=== PATIENT | female | born 1935 | race Caucasian/White ===

== ENCOUNTER → 2019-06-17 | Outpatient (CLI) | payer MEDICARE ==
[2014-10-27 23:20] VITALS: BP 147/56
[~2019-06-17] MED LIST: AMLO10TA4 PO; ASPI-630 PO; CHOL500016 PO; CLON0.1T PO; FERR325T14 PO; FURO40TA4 PO; HYDR-2867 PO; INSU100I11 SQ; INSU100V8 SQ; LEVO500T8 PO; MOXI3DRO18 RIGHTEYE; NEPA1.7D RIGHTEYE; OMEG1CAP54 PO; PRED5DRO16 RIGHTEYE; VIT1TABL32 PO
--- NOTE | 2019-06-17 09:37 | RAD ---
Examination: LUNG VENT/PERFUSION SCAN(VQ) History: Short of breath Comparison/Correlation: 06/17/2021 view chest x-ray exam Findings: 14 mCi xenon-133 gas was administered. Ventilation images were acquired in anterior and posterior projections. Pulmonary hyperinflation noted. No conclusive segmental defect. 5.5 mCi technetium 99m MAA was intravenously administered for purposes of perfusion imaging. Imaging was performed in 8 projections. No definite mismatched or matched defect. Pulmonary hyperinflation noted. Impression: Low probability for pulmonary embolism. Pulmonary hyperinflation which may represent COPD. Electronically signed by: Lasha Medeiros MD (06/17/2019 9:35 AM) [facility]
--- NOTE | 2019-06-17 14:52 | RAD ---
CHEST PA LATERAL History: Shortness of breath, preop Comparison: October 27, 2014 Findings: 2 views of the chest are submitted. There again has been a median sternotomy. Pericardial cardiac silhouette is enlarged although similar. There is again tortuous, possibly ectatic thoracic aorta, atherosclerotic calcification near arch. There is suspected emphysema. There is mild blunting of the costophrenic sulci bilaterally, trace pleural effusions not excluded although possibly component of pleural parenchymal fibrotic change. There is again round opacity of the mid right hemithorax, calcified granuloma seen on [address] Other chronic mild interstitial opacity bilaterally is stable. Impression: 1. There is suspected emphysema. There may be trace pleural effusions bilaterally versus mild pleural parenchymal fibrotic change. Cardiac silhouette is again enlarged. Electronically signed by: Kj Acosta MD (06/17/2019 2:49 PM) [id number]
== END | disposition home or self-care (01) ==
LOC: NM 07:44
PROVIDERS: ATTEND Family Medicine
DX: R06.02 Shortness of breath (principal); R79.1 Abnormal coagulation profile
CPT/HCPCS: 71046; 78582; 96374; A9540; A9558

== ENCOUNTER → 2019-09-06 | Outpatient (CLI) | payer MEDICARE ==
[2014-10-27 23:20] VITALS: BP 147/56
--- NOTE | 2019-09-06 10:02 | CARD ---
MR#: [id number] Date of Study: 09/06/2019 Ordering Physician: BROOK SIMEON, Referring Physician: BROOK SIMEON Tech: Geni Story RDCS APPROVED REPORT EXAM: Two-dimensional and M-mode echocardiogram with Doppler and color Doppler. Other Information Technically limited study due to body habitus. INDICATION Re-Evaluate vegetation on prosthetic mitral valve. Previous echo on 07/19/19 at [facility]. Surgery/Intervention Status/Post Mitral Valve Replacement: Bioprosthetic Type: Porcine Date: 2007 Mitral Valve MV E Peak Gr.31mmHgMV E Mean Gr.10mmHg Tricuspid Valve TR P. [id number] [id number] TR Peak Gr.[id number] LEFT VENTRICLE The left ventricular systolic function is normal and the ejection fraction is within normal range. Th e Ejection Fraction is 55-60%. Grossly normal wall motion. Septal motion suggestive of prior CABG Tis jonel Doppler imaging reveals moderate left ventricular diastolic dysfunction. RIGHT VENTRICLE The right ventricle is moderately dilated. The right ventricular systolic function is normal. ATRIA The left atrium is moderately dilated. The right atrium is moderately dilated. The interatrial septum is intact with no evidence for an atrial septal defect or patent foramen ovale as noted on 2-D or Do ppler imaging. AORTIC VALVE The aortic valve is calcified but opens well. Doppler and Color Flow revealed no significant aortic r egurgitation. There is no significant aortic valvular stenosis. MITRAL VALVE There is moderate to severe mitral valve stenosis. Calculated mitral valve area is 1.5 cm2 with maxim um pressure gradient of 31 mmHg and mean pressure gradient of 10 mmHg. Doppler and Color-flow reveale d trace mitral regurgitation. A bioprosthetic mitral valve is noted but not well visualized. There is a mobile mass (1.2x1.3 cm) attached to the anterior leaflet. Differential includes thrombus/vegetati on or flail leaflet with fibrous tissue. Correlate clinically. TRICUSPID VALVE Doppler and Color Flow revealed moderate tricuspid regurgitation. There is severe pulmonary hypertens ion. The PA pressure was estimated at 98 mmHg. There is no tricuspid valve stenosis. PULMONIC VALVE The pulmonic valve is not well visualized. Doppler and Color Flow revealed mild pulmonic valvular reg urgitation. There is no pulmonic valvular stenosis. GREAT VESSELS The aortic root is normal in size. There is moderate pulmonary artery dilatation. The IVC is dilated and unresponsive to inspiration. PERICARDIAL EFFUSION There is no evidence of significant pericardial effusion. Critical Notification Critical Value: No <Conclusion> The left ventricular systolic function is normal and the ejection fraction is within normal range. Th e Ejection Fraction is 55-60%. Grossly normal wall motion. Septal motion suggestive of prior CABG There is moderate to severe mitral valve stenosis. Calculated mitral valve area is 1.5 cm2 with maxim um pressure gradient of 31 mmHg and mean pressure gradient of 10 mmHg. A bioprosthetic mitral valve is noted but not well visualized. There is a mobile mass (1.2x1.3 cm) at tached to the anterior leaflet. Differential includes thrombus/vegetation or flail leaflet with fibro us tissue. Correlate clinically. Doppler and Color Flow revealed moderate tricuspid regurgitation. There is severe pulmonary hypertens ion. The PA pressure was estimated at 98 mmHg. Signed by : Edy Vogel, Electronically Approved : 09/06/2019 10:02:03
== END | disposition home or self-care (01) ==
LOC: ECHO 07:59
PROVIDERS: ATTEND Internal Medicine
DX: I08.8 Other rheumatic multiple valve diseases (principal); I33.0 Acute and subacute infective endocarditis; I50.9 Heart failure, unspecified; Z95.4 Presence of other heart-valve replacement
CPT/HCPCS: 93306

== ENCOUNTER 2019-10-03 18:18 | Emergency (ER) | payer MEDICARE ==
[~2019-10-03] VITALS: Ht 170.2 cm; Wt 87.0 kg
--- NOTE | 2019-10-03 18:53 | RAD ---
Exam: CT head INDICATION: Fall, hit head TECHNIQUE: Sequential axial images through the head were obtained without the administration of IV contrast. Comparisons: None FINDINGS: No focal parenchymal lesion or hemorrhage is identified. There is no midline shift or sulcal effacement. Hypodense area in the left frontal lobe. No acute vascular territory infarction is identified. Jones-white distinction is preserved. The ventricular system is within normal limits without compression hydrocephalus. The basal cisterns are well maintained. Extra cranial soft tissue contusion overlying the right occipital region. The visualized portions of the paranasal sinuses and mastoid air cells are well-pneumatized. No acute fractures. IMPRESSION: 1. Extra cranial soft tissue contusion overlying the right occipital region without underlying osseous or intracranial abnormality. 2. 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 Exposure: One or more of the following in the visualized dose reduction techniques were utilized for this examination: 1. Automated exposure control 2. Adjustment of the MA and/or KV according to patient size Use of iterative of reconstructive technique Electronically signed by: Abraham Brian MD (10/03/2019 6:50 PM) [id number]
--- NOTE | 2019-10-03 18:57 | PHYS DOC ---
Past History Past Medical History: A-Fib, Anemia, Anxiety, Arthritis, CHF, COPD, Dementia, Depression, Diabetes, GERD, High Cholesterol, Hypertension, Renal Failure, Other Additional Past Medical Histor: ENDOCARDITIS/DDSPHAGIA Past Surgical History: No Surgical History Additional Past Surgical Histo: PIC LINE LEFT ARM, DIALYSIS FISTULA RIGHT ARM Alcohol Use: None Drug Use: None General Adult EDM: Chief Complaint: MECHANICAL FALL HPI: HPI: 84-year-old female presents via EMS from the [facility] due to a fall. Patient was going to burr picker a pair of shoes and she lost her balance and fell over backwards. She struck the right aspect on the floor. She did not lose consciousness. The patient is on Coumadin so the snf sent her here for evaluation out of an abundance of caution. The patient does not have a headache. She denies any other injuries. Her INR today was reported to be a little high at 3.3. They were planning to hold her medication tonight. The patient has a PICC line in the left arm for a cardiac valve infection. She has a porcine valve. She denies fever chills. Review of Systems: Review of Systems: Constitutional: Denies fever or chills Eyes: Denies change in visual acuity HENT: Denies nasal congestion or sore throat Respiratory: shortness of breath at baseline Cardiovascular: Denies chest pain or edema GI: Denies abdominal pain, nausea, vomiting, bloody stools or diarrhea : Denies dysuria Musculoskeletal: Denies back pain or joint pain Integument: Scalp hematoma Neurologic: Denies headache, focal weakness or sensory changes Endocrine: Denies polyuria or polydipsia Lymphatic: Denies swollen glands Psychiatric: Denies depression or anxiety Heart Score: Risk Factors: Risk Factors: DM, Current or recent (<one month) smoker, HTN, HLP, family history of CAD, obesity. Risk Scores: Score 0 - 3: 2.5% MACE over next 6 weeks - Discharge Home Score 4 - 6: 20.3% MACE over next 6 weeks - Admit for Clinical Observation Score 7 - 10: 72.7% MACE over next 6 weeks - Early Invasive Strategies Allergies: Allergies: Allergies Coded Allergies Type Severity Reaction Last Updated Verified No Known Allergies Allergy Unknown 10/18/13 Yes Physical Exam: PE: Constitutional: Well developed, well nourished, no acute distress, non-toxic appearance. [] HENT: Normocephalic, atraumatic, bilateral external ears normal, oropharynx moist, no oral exudates, nose normal. [] Eyes: PERRLA, EOMI, conjunctiva normal, no discharge. [] Neck: Normal range of motion, no tenderness, supple, no stridor. [] Cardiovascular:Heart rate regular rhythm, no murmur [] Lungs & Thorax: On oxygen. Bilateral breath sounds diminished [] Abdomen: Bowel sounds normal, soft, no tenderness, no masses, no pulsatile masses. [] Skin: 2 cm superficial hematoma of the right occiput. PICC line in left upper arm [] Back: No tenderness, no CVA tenderness. [] Extremities: No tenderness, no cyanosis, no clubbing, ROM intact, no edema. [] Neurologic: Alert and oriented X 3, normal motor function, normal sensory function, no focal deficits noted. [] Psychologic: Affect normal, judgement normal, mood normal. [] Current Patient Data: Vital Signs: Vital Signs Date Time Temp Pulse Resp B/P (MAP) Pulse Ox O2 Delivery O2 Flow Rate FiO2 10/02/20 18:20 98.0 58 20 140/62 (88) 97 Room Air EKG: EKG: [] Radiology/Procedures: Radiology/Procedures: [] Impressions: Exam: CT head INDICATION: Fall, hit head TECHNIQUE: Sequential axial images through the head were obtained without the administration of IV contrast. Comparisons: None FINDINGS: No focal parenchymal lesion or hemorrhage is identified. There is no midline shift or sulcal effacement. Hypodense area in the left frontal lobe. No acute vascular territory infarction is identified. Jones-white distinction is preserved. The ventricular system is within normal limits without compression hydrocephalus. The basal cisterns are well maintained. Extra cranial soft tissue contusion overlying the right occipital region. The visualized portions of the paranasal sinuses and mastoid air cells are well-pneumatized. No acute fractures. IMPRESSION: 1. Extra cranial soft tissue contusion overlying the right occipital region without underlying osseous or intracranial abnormality. 2. 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 Exposure: One or more of the following in the visualized dose reduction techniques were utilized for this examination: 1. Automated exposure control 2. Adjustment of the MA and/or KV according to patient size Use of iterative of reconstructive technique Electronically signed by: Marlin Sandy MD (10/03/2019 6:50 PM) [id number] DICTATED AND SIGNED BY: MARLIN SANDY MD DATE: 10/03/191849 CC: LORETA SZYMANSKI DO; ARMIN WESTON MD ~ Course & Med Decision Making: Course & Med Decision Making Pertinent Labs and Imaging studies reviewed. (See chart for details) The patient's head CT is negative for significant acute findings. Incidental findings that appear to be chronic. See official read for more details. Patient is on dialysis and does not urinate anymore, so there is no urinalysis. Labs are pending. The patient dialysis days are Thursday, , and Thursday. She is due tomorrow. Her hemoglobin is 11. As expected, her BUN and creatinine are quite high. See labs for more details. I believe the patient c an return to her care facility. She is stable for discharge at this time. [] Dragon Disclaimer: Dragon Disclaimer: This electronic medical record was generated, in whole or in part, using a voice recognition dictation system. Departure Departure: Impression: Primary Impression: Fall from slip, trip, or stumble Qualified Codes: W01.0XXA - Fall on same level from slipping, tripping and stumbling without subsequent striking against object, initial encounter Disposition: HOME/RESIDENCE PRIOR TO ADM Condition: STABLE Referrals: ARMIN WESTON MD (PCP) LORETA SZYMANSKI DO Oct 03, 2019 18:57
[2019-10-03 19:23] LABS: BASO # 0.1 x10^3/uL (0.0-0.2); BASO % 1 % (0-3); EOS # 0.5 x10^3/uL (0.0-0.7); EOS % 6 % (0-3); HEMATOCRIT 34.2 % (36.0-47.0); LYMPH # 1.7 x10^3/uL (1.0-4.8); LYMPH % 21 % (24-48); MEAN CORPUSCULAR HEMOGLOBIN 33 pg (25-35); MEAN CORPUSCULAR HGB CONC 32 g/dL (31-37); MEAN CORPUSCULAR VOLUME 102 fL (79-100); MONO % 12 % (0-9); NEUT # 4.8 x10^3uL (1.8-7.7); NEUT % 60 % (31-73); PLATELET COUNT 206 x10^3/uL (140-400); RED BLOOD COUNT 3.34 x10^6/uL (3.50-5.40); RED CELL DISTRIBUTION WIDTH 16.8 % (11.5-14.5)
[2019-10-03 19:33] LABS: CREATININE 7.2 mg/dL (0.6-1.0); GFR 5.4; POTASSIUM 4.2 mmol/L (3.5-5.1)
[2019-10-03 19:38] LABS: ALBUMIN 2.9 g/dL (3.4-5.0); ALBUMIN/GLOBULIN RATIO 0.7 (1.0-1.7); TOTAL BILIRUBIN 0.4 mg/dL (0.2-1.0); TOTAL PROTEIN 7.3 g/dL (6.4-8.2)
[2019-10-03 20:32] VITALS: BP 126/70
== END 2019-10-03 20:42 | disposition home or self-care (01) ==
LOC: ER 18:18
DX: S00.03XA Contusion of scalp, initial encounter (principal); E11.22 Type 2 diabetes mellitus with diabetic chronic kidney disease; N18.9 Chronic kidney disease, unspecified; I13.0 Hypertensive heart and chronic kidney disease with heart failure and stage 1 through stage 4 chronic kidney disease, or unspecified chronic kidney disease; I50.9 Heart failure, unspecified; I48.91 Unspecified atrial fibrillation; M19.90 Unspecified osteoarthritis, unspecified site; F41.9 Anxiety disorder, unspecified; J44.9 Chronic obstructive pulmonary disease, unspecified; F03.90 Unspecified dementia, unspecified severity, without behavioral disturbance, psychotic disturbance, mood disturbance, and anxiety; F32.9 Major depressive disorder, single episode, unspecified; K21.9 Gastro-esophageal reflux disease without esophagitis; E78.00 Pure hypercholesterolemia, unspecified; Z99.2 Dependence on renal dialysis; W01.0XXA Fall on same level from slipping, tripping and stumbling without subsequent striking against object, initial encounter; Y93.89 Activity, other specified; Y92.89 Other specified places as the place of occurrence of the external cause; Y99.8 Other external cause status
CPT/HCPCS: 36415; 70450; 80053; 85025; 99284-25